=== PATIENT | male | born 1990 | race Caucasian/White ===

== ENCOUNTER 2020-09-15 21:48 | Inpatient (IN) | payer OTHER ==
[~2020-09-15] VITALS: Ht 203.2 cm; Wt 84.0 kg
--- NOTE | 2020-09-15 20:24 | NUR ---
REPORT FROM ER DINORA SPOKE TO GISELLE TATUM RN. PER REPORT PATIENT HAD A TOTAL OF 3L NS BOLUS, 2 DOSES OF 12.5 MG IV PHENERGAN, HUMULIN R 10 UNITS GIVEN AT 1905. NO KNOWN ALLERGIES. AWAITING FOR EMS TO TRANSPORT PATIENT
--- NOTE | 2020-09-15 21:18 | NUR ---
DR POTTS IN THE UNIT RECEIVED ORDER: CHECK BLOOD GLUCOSE UPON PATIENT'S ARRI HEYDI. SERUM KETONES, CMP AND STAT ABG. RBVO
[2020-09-15 22:15] VITALS: BP 142/72
--- NOTE | 2020-09-15 22:15 | NUR ---
ARRIVAL TO [facility] RM 235A TRANSPORTED VIA EMS ON STRETCHER. PATIENT AMBULATE FROM STRETCHER TO BED WITHOUT DIFFICULTY. RECEIVED TACHYCARDIC. INITIAL HR 121 BPM, SPO2 100% IN ROOM AIR. AFEBRILE. ORIENTED TO ROOM. EXPLAINED PLAN OF CARE THIS SHIFT. AMENABLE
--- NOTE | 2020-09-15 22:21 | NUR ---
BUSINESS RISK CONSULTANT/ RT AT BEDSIDE BLOOD EXTRACTION FOR ORDERED LABS: SERUM KETONES, CMP AND ABG
[2020-09-15 22:41] LABS: ABG PCO2 14.4 mmHg (35.0-45.0); ABG PH 7.059 (7.350-7.450); BE(B) -24.3 mmol/L (-2.0-2.0); pO2 135.3 mmHg (80.0-100.0)
--- NOTE | 2020-09-15 22:45 | NUR ---
RELAYED ABG RESULTS TO DR POTTS RECEIVED ORDER TO START INSULIN DRIP PER PROTOCOL, FOLLOWING COLUMN 1. RBTO AWAITING FOR OTHER LAB RESULTS FOR FURTHER ORDERS.
[2020-09-15] MEDS ORDERED: NS 100ML 100 ML IV ONE (22:50)
[2020-09-15] MEDS ORDERED: HUMULIN R ONE (22:51)
[2020-09-15 23:19] LABS: CALCIUM 8.3 mg/dL (8.4-10.5); CARBON DIOXIDE 7.6 mmol/L (20.0-32)
[2020-09-15] MEDS ORDERED: HUMULIN R 100 UNIT in NS 100ML 100 ML IV SCH (23:30)
[2020-09-15] MEDS ORDERED: SODIUM BICARBONATE IV ONE (23:59)
--- NOTE | 2020-09-15 23:59 | NUR ---
TELEPHONE CALL FROM DR POTTS RELAYED LAB RESULTS. RECEIVED ORDER TO GIVE 1 AMP OF SODIUM BICARBONATE. NPO. KEEP INSULIN DRIP FOLLOWING COLUMN 1 PER PROTOCOL. IF BLOOD SUGAR IS <200, STOP DRIP PATIENT MUST HAVE 2 NEGATIVE SERUM KETONES RESULT, TAKEN 2 HOURS APART. THEN START PATIENT ON MODERATE INSULIN SLIDING SCALE. RBTO
[2020-09-16] VITALS (11 sets, daily range): BP systolic 104–132; BP diastolic 57–77
[2020-09-16] MEDS ORDERED: SODIUM BICARBONATE IV STA (00:11)
--- NOTE | 2020-09-16 03:05 | NUR ---
INSULIN DRIP DISCONTINUED PER MD ORDER BLOOD GLUCOSE 194 MG/DL. IV SALINE FLUSHED, LOCKED.
[2020-09-16] MEDS ORDERED: ZOFRAN ONE (04:14)
--- NOTE | 2020-09-16 04:18 | NUR ---
NAUSEA PATIENT COMPLAINING OF NAUSEA. TELEPHONE CALL TO DR POTTS. NOTIFIED RE: PATIENT'S NAUSEA, INSULIN DRIP DISCONTINUED AT 0300 AM AFTER BLOOD GLUCOSE CHECK 194 MG/DL. SERUM KETONES WITH SMALL AMOUNT. RECEIVED ORDER TO GIVE ZOFRAN 4MG IV Q6 PRN, START PATIENT ON NS 100 ML/HR. RBTO
[2020-09-16] MEDS: NS 1000ML 1,000 ML IV SCH ×3 (04:19→22:07)
[2020-09-16] MEDS ORDERED: ZOFRAN IV PRN (04:30)
--- NOTE | 2020-09-16 04:40 | NUR ---
REASSESSMENT PATIENT RECEIVED ZOFRAN. SEE EMAR. STATED THAT HE FEELS BETTER, COMFORTABLE.
--- NOTE | 2020-09-16 06:30 | NUR ---
TELEPHONE CALL TO DR POTTS NOTIFIED RE: SERUM KETONES RESULTED POSITIVE. LATEST BLOOD SUGAR 242 MG/DL. RECEIVED THE FF ORDERS: LANTUS 20 UNITS SQ Q HS, 1800 DIABETIC DIET. ACCUCHECKS ACHS ON MODERATE INSULIN SLIDING SCALE. RBTO
[2020-09-16] MEDS ORDERED: DEXTROSE 50%-WATER SYRINGE IV PRN ×3 (07:00→11:30)
--- NOTE | 2020-09-16 07:05 | NUR ---
REPORT RECEIVED REPORT AND ASSUMED CARE OF PT.
--- NOTE | 2020-09-16 07:06 | NUR ---
REPORT TO GREG ANGEL ENDORSED PATIENT ACCORDINGLY.
[2020-09-16] MEDS ORDERED: HUMULIN R SQ SCH (07:30)
[2020-09-16] MEDS ORDERED: HUMALOG ONE (08:21)
[2020-09-16] MEDS ORDERED: NS 1000ML 1,000 ML ONE (09:19)
--- NOTE | 2020-09-16 11:36 | PCM.HP ---
HISTORY & PHYSICAL HISTORY & PHYSICAL DATE OF ADMISSION: 09/15/2020 CHIEF COMPLAINT: Abdominal pain HISTORY OF PRESENT ILLNESS: Patient is a 30y/o gentleman with hx of IDDM diagnosed 2yrs ago. He was seen at healthcare facility in [place] on account of worsening abdominal pain, nausea and vomiting. There was no associated fever, chills, diarrhea, SOB, chest pain and cough. Patient indicated that he did not use his insulin for 6days prior to the onset of his symptoms. At presentation in [place], he was noted to have features of DKA with elevated blood sugar of over 400 and elevated serum ketones. Patient was give IV insulin and 3l of IV fluid. We were consulted for transfer because of unavailability of ICU beds in [place]. Patient was accepted and transferred to our facility. He was subsequently started on insulin drip protocol. ALLERGIES: NKDA CURRENT MEDICATIONS: Insulin PAST MEDICAL HISTORY: IDDM SOCIAL HISTORY: No hx of smoking, ETOH and illicit drug use FAMILY HISTORY: DM in both parents CAD in the mother REVIEW OF SYSTEMS: As in HPI, others are negative PHYSICAL EXAMINATION: GENERAL: alert and oriented VITAL SIGNS: VS - Last 72 Hours, by Label Date Time Temp Pulse Resp B/P (MAP) Pulse Ox O2 Delivery O2 Flow Rate FiO2 09/16/20 05:21 97.8 104 20 112/70 (84) 100 09/16/20 05:17 119 18 123/65 (84) 100 Room Air 09/16/20 04:00 98.4 90 21 132/68 (89) 100 Room Air 09/16/20 03:00 90 20 104/72 (83) 100 Room Air 09/16/20 02:00 100 22 111/70 (84) 100 Room Air 09/16/20 00:43 101 21 112/77 (89) 100 09/16/20 00:16 99.2 112 20 114/68 (83) 99 09/15/20 22:15 Room Air 09/15/20 22:15 Room Air 09/15/20 22:15 124 19 142/72 (95) 100 HEENT:PERRLA NECK: supple LUNGS: CTA HEART: Sinus Tachycardia, no mumur ABDOMEN: Mild epigastric tenderness, soft, BS++ EXTREMITIES: No edema, no clubbing NEUROLOGIC: alert and oriented, CN3-12 intact, No focal motor deficit LABORATORY DATA: Laboratory Tests Test 09/15/20 22:21 09/15/20 22:30 09/15/20 22:52 09/16/20 00:10 Sodium Level 140 mmol/L (132-145) Potassium Level 4.3 mmol/L (3.6-5.2) Chloride Level 106.0 mmol/L (96-109) Carbon Dioxide Level 7.6 mmol/L (20.0-32) Anion Gap 30.7 Blood Urea Nitrogen 16 mg/dL (7-18) Creatinine 1.69 mg/dL (0.59-1.40) Estimated GFR () 58.8 (>/=60) Est GFR (CKD-EPI)(Non-Afr Mozambican) 48.6 (>/=60) BUN/Creatinine Ratio 9.0 Glucose Level 304 mg/dL (70-110) Calcium Level 8.3 mg/dL (8.4-10.5) Total Bilirubin 0.6 mg/dL (0.2-1.0) Aspartate Amino Transf (AST/SGOT) 13 U/L (0-35) Alanine Aminotransferase (ALT/SGPT) 19 U/L (12-78) Alkaline Phosphatase 117 U/L (50-136) Total Protein 8.0 g/dL (6.4-8.2) Albumin 4.4 g/dL (3.4-5.0) Globulin 3.6 Albumin/Globulin Ratio 1.222 Acetone, Semi-Quantitative SMALL Blood Gas Sample Site LR Blood Gas pH 7.059 (7.350-7.450) Blood Gas PCO2 14.4 mmHg (35.0-45.0) Blood Gas PO2 135.3 mmHg (80.0-100.0) Blood Gas HCO3 4.0 mmol/L (22.0-26.0) Blood Gas Base Excess -24.3 mmol/L (-2.0-2.0) Vernon Test POSITIVE Arterial Blood Oxygen Saturation 98.5 % (94.0-97.00) Deoxyhemoglobin 1.5 % (0.0-5.0) Carboxyhemoglobin 0.8 % (0.0-3.9) Methemoglobin 0.6 % (0.00-5.0) Total Hemoglobin 16.0 % (12.0-17.8) Total Oxygen Concentration 22.0 % (13.5-17.5) Blood Gas Temperature 37 Oxygen Delivery Method (LAB) ROOM AIR FiO2 21 % (20-101) Total Carbon Dioxide 4.4 mmol/L (23-27) Bedside Glucose 274 (70 - 110) 293 (70 - 110) Test 09/16/20 01:07 09/16/20 02:00 09/16/20 02:59 09/16/20 03:20 Bedside Glucose 244 (70 - 110) 224 (70 - 110) 196 (70 - 110) Acetone, Semi-Quantitative SMALL Test 09/16/20 06:02 09/16/20 06:11 09/16/20 08:05 Acetone, Semi-Quantitative SMALL Bedside Glucose 242 (70 - 110) 262 (70 - 110) ASSESSMENT AND PLANS Patient is a 30yrs old gentleman that was transferred to our facility with features of DKA. Started on insulin protocol overnight DKA -weaned off insulin protocol -continue lantus 20units qhs -aggressive insulin sliding scale -repeat cmp and ABG -A1c -DM education and counseling -continue regular accucheks -start protonix for GI prophylaxis and gastritis -zofran prn for nuasea and vomiting -strict DM diet -further care per clinical course. may d/c home tomorrow if stable Please use this noted as progress note of 09/16/2020 AVIS POTTS MD Sep 16, 2020 11:36
[2020-09-16] MEDS ORDERED: HUMULIN R ONE (11:53)
[2020-09-16] MEDS: HUMULIN R SQ SCH ×3 (11:55→22:02)
[2020-09-16 12:23] LABS: BASOPHIL % 0.1 % (0.0-0.2); EOSINOPHIL % 0.1 % (0.0-5.0); LYMPHOCYTES # 1.42 10^3/uL1 (1.0-4.8); LYMPHOCYTES % 9.4 % (24.0-44.0); MEAN CORP HGB 30.5 pg (26-34); MONOCYTES # 1.2 10^3/uL (0.3-0.8); NEUTROPHIL # 12.3 10^3/uL (1.8-7.7); NEUTROPHILS % 81.7 % (41.0-85.0); PLATELET COUNT 255 10^3/uL (150-400); RED CELL DISTRIBUTION WIDTH 12.3 % (11.5-14.5)
[2020-09-16 12:28] LABS: CARBON DIOXIDE 12.8 mmol/L (20.0-32)
[2020-09-16 12:33] LABS: ABG PCO2 20.9 mmHg (35.0-45.0); ABG PH 7.234 (7.350-7.450); BE(B) -16.6 mmol/L (-2.0-2.0); HCO3act 8.6 mmol/L (22.0-26.0); pO2 99.3 mmHg (80.0-100.0)
[2020-09-16] MEDS ORDERED: SODIUM BICARBONATE IV ONE ×2 (13:29→13:30)
[2020-09-16 18:33] LABS: ABG PCO2 27.5 mmHg (35.0-45.0); ABG PH 7.308 (7.350-7.450); BE(B) -11.1 mmol/L (-2.0-2.0); HCO3act 13.5 mmol/L (22.0-26.0); pO2 85.2 mmHg (80.0-100.0)
[2020-09-16] MEDS ORDERED: LANTUS SQ SCH (21:00)
[2020-09-17 00:12] VITALS: BP 103/63
--- NOTE | 2020-09-17 02:05 | NUR ---
Pt U/A drawn and dropped off to lab
[2020-09-17 02:38] LABS: APPEARANCE,URINE CLEAR (CLEAR); UA COLOR YELLOW (YELLOW)
[2020-09-17 02:40] LABS: BILIRUBIN,URINE SMALL MG/DL (NEGATIVE)
[2020-09-17 02:41] LABS: UROBILINOGEN,URINE NORMAL (NEGATIVE)
[2020-09-17 05:01] VITALS: BP 106/62
[2020-09-17] MEDS: HUMULIN R SQ SCH ×2 (07:30→12:35)
[2020-09-17 07:35] VITALS: BP 105/61
[2020-09-17 07:40] LABS: BASOPHIL % 0.3 % (0.0-0.2); EOSINOPHIL # 0.1 10^3/uL (0.0-0.2); EOSINOPHIL % 1.6 % (0.0-5.0); LYMPHOCYTES # 2.15 10^3/uL1 (1.0-4.8); LYMPHOCYTES % 32.1 % (24.0-44.0); MEAN CORP HGB 30.6 pg (26-34); MONOCYTES # 0.5 10^3/uL (0.3-0.8); MONOCYTES % 6.9 % (5.0-12.0); NEUTROPHIL # 3.9 10^3/uL (1.8-7.7); NEUTROPHILS % 58.8 % (41.0-85.0); RED CELL DISTRIBUTION WIDTH 12.4 % (11.5-14.5)
[2020-09-17] MEDS ORDERED: PROTONIX PO ONE (07:43)
[2020-09-17] MEDS: NS 1000ML 1,000 ML IV SCH (07:46)
[2020-09-17 07:59] LABS: CALCIUM 8.6 mg/dL (8.4-10.5); CARBON DIOXIDE 20.2 mmol/L (20.0-32)
[2020-09-17] MEDS ORDERED: PROTONIX PO SCH (09:00)
--- NOTE | 2020-09-17 09:14 | NUR ---
Dr Leo aware of pot 3.1 orders obtained..clair RN
[2020-09-17] MEDS ORDERED: KLOR-CON 10 PO ONE (09:30)
--- NOTE | 2020-09-17 10:08 | NUR ---
sbar report received from nurse patient is in bed aox4 denies pain. assessment completed no sign of distress noted. Vitals stable, safety measures in place will continue to monitor..clair rn
[2020-09-17 11:00] VITALS: BP 111/70
[2020-09-17] MEDS ORDERED: INSU100V8 SQ (11:52)
[2020-09-17] MEDS ORDERED: INSU100V37 SQ (11:52)
--- NOTE | 2020-09-17 12:16 | PRM.DC ---
DISCHARGE SUMMARY DISCHARGE SUMMARY Patient is a 30y/o gentleman with hx of IDDM diagnosed 2yrs ago. He was seen at a healthcare facility in [place] on account of worsening abdominal pain, nausea and vomiting. There was no associated fever, chills, diarrhea, SOB, chest pain and cough. Patient indicated that he did not use his insulin for 6days skip or to the onset of his symptoms. At presentation in [place], he was noted to have features of DKA with elevated blood sugar of over 400 and elevated serum ketones. Patient was give IV insulin and 3l of IV fluid. We were consulted for transfer because of unavailability of ICU beds in [place]. Patient was accepted and transferred to our facility. He was subsequently started on insulin drip protocol. Patient was serailly monitored while in the hospital. After stopping insulin drip, he was started on lantus and insulin sliding scale. Also provided diabetic education. Blood sugar has improved today. He is no longer having abdominal pain nausea and vomiting. His physical examination appeared benign today. First Vital Signs Date Time Temp Pulse Resp B/P (MAP) Pulse Ox O2 Delivery O2 Flow Rate FiO2 09/15/20 22:15 124 19 142/72 (95) 100 09/15/20 22:15 Room Air 09/16/20 00:16 99.2 Last Vital Signs Date Time Temp Pulse Resp B/P (MAP) Pulse Ox O2 Delivery O2 Flow Rate FiO2 09/17/20 11:00 97.4 79 20 111/70 (84) 100 Room Air Laboratory Tests Test 09/15/20 22:21 09/15/20 22:30 09/15/20 22:52 09/16/20 00:10 Sodium Level 140 mmol/L (132-145) Potassium Level 4.3 mmol/L (3.6-5.2) Chloride Level 106.0 mmol/L (96-109) Carbon Dioxide Level 7.6 mmol/L (20.0-32) Anion Gap 30.7 Blood Urea Nitrogen 16 mg/dL (7-18) Creatinine 1.69 mg/dL (0.59-1.40) Estimated GFR () 58.8 (>/=60) Est GFR (CKD-EPI)(Non-Afr Azerbaijani) 48.6 (>/=60) BUN/Creatinine Ratio 9.0 Glucose Level 304 mg/dL (70-110) Calcium Level 8.3 mg/dL (8.4-10.5) Total Bilirubin 0.6 mg/dL (0.2-1.0) Aspartate Amino Transf (AST/SGOT) 13 U/L (0-35) Alanine Aminotransferase (ALT/SGPT) 19 U/L (12-78) Alkaline Phosphatase 117 U/L (50-136) Total Protein 8.0 g/dL (6.4-8.2) Albumin 4.4 g/dL (3.4-5.0) Globulin 3.6 Albumin/Globulin Ratio 1.222 Acetone, Semi-Quantitative SMALL Blood Gas Sample Site LR Blood Gas pH 7.059 (7.350-7.450) Blood Gas PCO2 14.4 mmHg (35.0-45.0) Blood Gas PO2 135.3 mmHg (80.0-100.0) Blood Gas HCO3 4.0 mmol/L (22.0-26.0) Blood Gas Base Excess -24.3 mmol/L (-2.0-2.0) Vernon Test POSITIVE Arterial Blood Oxygen Saturation 98.5 % (94.0-97.00) Deoxyhemoglobin 1.5 % (0.0-5.0) Carboxyhemoglobin 0.8 % (0.0-3.9) Methemoglobin 0.6 % (0.00-5.0) Total Hemoglobin 16.0 % (12.0-17.8) Total Oxygen Concentration 22.0 % (13.5-17.5) Blood Gas Temperature 37 Oxygen Delivery Method (LAB) ROOM AIR FiO2 21 % (20-101) Total Carbon Dioxide 4.4 mmol/L (23-27) Bedside Glucose 274 (70 - 110) 293 (70 - 110) Test 09/16/20 01:07 09/16/20 02:00 09/16/20 02:59 09/16/20 03:20 Bedside Glucose 244 (70 - 110) 224 (70 - 110) 196 (70 - 110) Acetone, Semi-Quantitative SMALL Test 09/16/20 06:02 09/16/20 06:11 09/16/20 08:05 09/16/20 11:11 Acetone, Semi-Quantitative SMALL Bedside Glucose 242 (70 - 110) 262 (70 - 110) Blood Gas Sample Site RT BRACIAL ARTERY Blood Gas pH 7.234 (7.350-7.450) Blood Gas PCO2 20.9 mmHg (35.0-45.0) Blood Gas PO2 99.3 mmHg (80.0-100.0) Blood Gas HCO3 8.6 mmol/L (22.0-26.0) Blood Gas Base Excess -16.6 mmol/L (-2.0-2.0) Vernon Test N/A Arterial Blood Oxygen Saturation 97.8 % (94.0-97.00) Deoxyhemoglobin 2.2 % (0.0-5.0) Carboxyhemoglobin 0.7 % (0.0-3.9) Methemoglobin 0.4 % (0.00-5.0) Total Hemoglobin 15.1 % (12.0-17.8) Total Oxygen Concentration 20.6 % (13.5-17.5) Blood Gas Temperature 37 FiO2 21.0 % (20-101) Total Carbon Dioxide 9.3 mmol/L (23-27) Test 09/16/20 11:20 09/16/20 11:46 09/16/20 17:19 09/16/20 17:30 White Blood Count 15.0 10^3/uL (4.5-11.0) Red Blood Count 5.08 10^6/uL (4.50-5.90) Hemoglobin 15.5 g/dL (13.9-16.3) Hematocrit 43.4 % (37.0-53.0) Mean Corpuscular Volume 85.4 fL (78-100) Mean Corpuscular Hemoglobin 30.5 pg (26-34) Mean Corpuscular Hemoglobin Concent 35.7 g/dL (33-36.5) Red Cell Distribution Width 12.3 % (11.5-14.5) Platelet Count 255 10^3/uL (150-400) Mean Platelet Volume 10.6 fL (7.8-11.0) Neutrophils (%) (Auto) 81.7 % (41.0-85.0) Lymphocytes (%) (Auto) 9.4 % (24.0-44.0) Monocytes (%) (Auto) 8.0 % (5.0-12.0) Neutrophils # (Auto) 12.3 10^3/uL (1.8-7.7) Lymphocytes # (Auto) 1.42 10^3/uL1 (1.0-4.8) Monocytes # (Auto) 1.2 10^3/uL (0.3-0.8) Absolute Immature Granulocyte (auto 0.10 10^3 u/L (0-2) Absolute Eosinophils (auto) 0.0 10^3/uL (0.0-0.2) Immature Granulocytes % 0.70 % (0.00-0.50) Eosinophils % 0.1 % (0.0-5.0) Basophils % 0.1 % (0.0-0.2) Basophils # 0.0 10^3/uL (0.0-0.1) Sodium Level 137 mmol/L (132-145) Potassium Level 3.7 mmol/L (3.6-5.2) Chloride Level 106.0 mmol/L (96-109) Carbon Dioxide Level 12.8 mmol/L (20.0-32) Anion Gap 21.9 Blood Urea Nitrogen 13 mg/dL (7-18) Creatinine 1.49 mg/dL (0.59-1.40) Estimated GFR () 68.0 (>/=60) Est GFR (CKD-EPI)(Non-Afr Azerbaijani) 56.2 (>/=60) BUN/Creatinine Ratio 8.0 Glucose Level 262 mg/dL (70-110) Hemoglobin A1c 11.3 % (0-5.7) Calcium Level 9.0 mg/dL (8.4-10.5) Phosphorus Level 2.1 mg/dL (2.5-4.9) Magnesium Level 1.9 mg/dL (1.8-2.4) Total Bilirubin 0.8 mg/dL (0.2-1.0) Aspartate Amino Transf (AST/SGOT) 9 U/L (0-35) Alanine Aminotransferase (ALT/SGPT) 14 U/L (12-78) Alkaline Phosphatase 108 U/L (50-136) Total Protein 8.1 g/dL (6.4-8.2) Albumin 4.2 g/dL (3.4-5.0) Globulin 3.9 Albumin/Globulin Ratio 1.076 Bedside Glucose 248 (70 - 110) 198 (70 - 110) Blood Gas Sample Site RB Blood Gas pH 7.308 (7.350-7.450) Blood Gas PCO2 27.5 mmHg (35.0-45.0) Blood Gas PO2 85.2 mmHg (80.0-100.0) Blood Gas HCO3 13.5 mmol/L (22.0-26.0) Blood Gas Base Excess -11.1 mmol/L (-2.0-2.0) Vernon Test N/A Arterial Blood Oxygen Saturation 97.2 % (94.0-97.00) Deoxyhemoglobin 2.8 % (0.0-5.0) Carboxyhemoglobin 1.1 % (0.0-3.9) Methemoglobin 0.4 % (0.00-5.0) Total Hemoglobin 14.1 % (12.0-17.8) Total Oxygen Concentration 19.0 % (13.5-17.5) Blood Gas Temperature 37 Oxygen Delivery Method (LAB) RM AIR FiO2 21.0 % (20-101) Total Carbon Dioxide 14.3 mmol/L (23-27) Test 09/16/20 20:04 09/17/20 02:05 09/17/20 04:34 09/17/20 07:33 Bedside Glucose 212 (70 - 110) 135 (70 - 110) Urine Collection Type VOID Urine Color YELLOW (YELLOW) Urine Appearance CLEAR (CLEAR) Urine Bilirubin SMALL MG/DL (NEGATIVE) Urine Ictotest NEGATIVE (NEGATIVE) Urine Ketones LARGE (NEGATIVE) Urine Specific [place] 1.025 (1.005-1.035) Urine pH 6.0 (5.0-6.0) Urine Protein 30 mg/dL (NEGATIVE) Urine Urobilinogen NORMAL (NEGATIVE) Urine Nitrate NEGATIVE (NEGATAIVE) Urine Leukocyte Esterase NEGATIVE (NEGATIVE) Urine Blood NEGATIVE (NEGATIVE) Urine RBC NONE SEEN RBC/HPF (NONE Urine WBC NONE SEEN WBC/HPF (0-2) Urine Crystals (NONE SEEN) Urine Bacteria RARE (NONE SEEN) Urine Glucose 500 (NEGATIVE) White Blood Count 6.7 10^3/uL (4.5-11.0) Red Blood Count 4.44 10^6/uL (4.50-5.90) Hemoglobin 13.6 g/dL (13.9-16.3) Hematocrit 38.7 % (37.0-53.0) Mean Corpuscular Volume 87.2 fL (78-100) Mean Corpuscular Hemoglobin 30.6 pg (26-34) Mean Corpuscular Hemoglobin Concent 35.1 g/dL (33-36.5) Red Cell Distribution Width 12.4 % (11.5-14.5) Platelet Count 160 10^3/uL (150-400) Mean Platelet Volume 10.0 fL (7.8-11.0) Neutrophils (%) (Auto) 58.8 % (41.0-85.0) Lymphocytes (%) (Auto) 32.1 % (24.0-44.0) Monocytes (%) (Auto) 6.9 % (5.0-12.0) Neutrophils # (Auto) 3.9 10^3/uL (1.8-7.7) Lymphocytes # (Auto) 2.15 10^3/uL1 (1.0-4.8) Monocytes # (Auto) 0.5 10^3/uL (0.3-0.8) Absolute Immature Granulocyte (auto 0.02 10^3 u/L (0-2) Absolute Eosinophils (auto) 0.1 10^3/uL (0.0-0.2) Immature Granulocytes % 0.30 % (0.00-0.50) Eosinophils % 1.6 % (0.0-5.0) Basophils % 0.3 % (0.0-0.2) Basophils # 0.0 10^3/uL (0.0-0.1) Sodium Level 137 mmol/L (132-145) Potassium Level 3.1 mmol/L (3.6-5.2) Chloride Level 107.0 mmol/L (96-109) Carbon Dioxide Level 20.2 mmol/L (20.0-32) Anion Gap 12.9 Blood Urea Nitrogen 10 mg/dL (7-18) Creatinine 1.11 mg/dL (0.59-1.40) Estimated GFR () 95.4 (>/=60) Est GFR (CKD-EPI)(Non-Afr Azerbaijani) 78.9 (>/=60) BUN/Creatinine Ratio 9.0 Glucose Level 123 mg/dL (70-110) Calcium Level 8.6 mg/dL (8.4-10.5) Total Bilirubin 1.0 mg/dL (0.2-1.0) Aspartate Amino Transf (AST/SGOT) 11 U/L (0-35) Alanine Aminotransferase (ALT/SGPT) 14 U/L (12-78) Alkaline Phosphatase 82 U/L (50-136) Total Protein 6.5 g/dL (6.4-8.2) Albumin 3.4 g/dL (3.4-5.0) Globulin 3.1 Albumin/Globulin Ratio 1.096 Test 09/17/20 07:39 09/17/20 11:14 Bedside Glucose 129 (70 - 110) 343 (70 - 110) DISCHARGE PLANS -CONTINUE INSULIN AT HOME -DIABETIC DIET -F/U WITH PCP WITHIN ONE WEEK AVIS POTTS MD Sep 17, 2020 12:16
--- NOTE | 2020-09-17 13:59 | NUR ---
DISCHARGE MEDS CM F/U WITH [facility] IN [place] AND PATIENT WILL NEED TO F/U WITH THEM ON 09/18/20 FOR NEW MEDICATIONS. CM NOTIFIED Estrada OSHEA LVN.
--- NOTE | 2020-09-17 14:00 | NUR ---
Discharge instructions discussed with patient. patient was able to verbalized understanding on following sliding scale insulin. patient also demonstrated correct sequence of sliding scale. PIV removed pressure held to site, no sign of bleeding noted. patient escorted off unit by nurse in stable condition..scrap sorter RN
== END 2020-09-17 13:30 | disposition home or self-care (01) | DRG 639 ==
LOC: MS 22:00
PROVIDERS: ADMIT Family Medicine; ATTEND Family Medicine
DX: E11.10 Type 2 diabetes mellitus with ketoacidosis without coma (principal); Z79.4 Long term (current) use of insulin; Z82.49 Family history of ischemic heart disease and other diseases of the circulatory system; Z83.3 Family history of diabetes mellitus; Z71.3 Dietary counseling and surveillance
CPT/HCPCS: 36415; 36600; 80053; 81000; 82010; 82803; 82948; 83036; 83735; 84100; 85025; 87086; G0378; J1815; J2405; J3490; J7030; J7050